=== PATIENT | male | born 1985 | race Caucasian/White ===

== ENCOUNTER 2018-11-14 22:13 | Inpatient (IN) | payer MEDICAID ==
[~2018-11-14] VITALS: Ht 185.4 cm; Wt 108.0 kg
[2018-11-14 22:15] VITALS: BP 122/69
--- NOTE | 2018-11-14 22:18 | NUR ---
to lobby a/w bed ambulatory
--- NOTE | 2018-11-14 23:04 | NUR ---
PT AMBULATED TO ER BED 10
--- NOTE | 2018-11-14 23:10 | NUR ---
33 YO M BIB MELISSA AND MADELYN PRESENTS TO ED S/P FALL AT AROUND 1700. PT STATES HE FELL BACKWARDS AND HIT HEAD AGAINST WALL TWICE AND FELL TO FLOOR. DENIES LOC BUT NOW FEELS WEAK, DIZZY, TIRED. GIRLFRIEND ALSO STATES THAT PT HAS NEW ONSET DISCOLORATION BENEATH EYES. NO GROSS TRAUMA/DEFORMITY NOTED TO SKULL. NO OTHER INJURIES REPORTED. -- PT AWAKE, A/O X 4, CALM, COOPERATIVE. ANSWERING QUESTIONS APPROPRIATELY. BEHAVIOR AGE APPROPROATE. NEURO CHECKS IN TACT. EYES PERRLA. PETICHIAE NOTED BENEATH EYES BILATERALLY. -- SKIN WARM, DRY, PINK. BREATHING EVEN, UNLABORED. PMH-- DENIES RX-- MOTRIN AT 1900 Addendum: 11/15/18 at 0308 by [facility] PT REPORTS NAUSEA WHILE SITTING IN WAITING ROOM. NO VOMITING. PT IS ALSO NOTED TO HAVE FLAT AFFECT DURING ASSESSMENT.
--- NOTE | 2018-11-14 23:30 | NUR ---
PT'S MADELYN APPROACHED PRIMARY NURSE TO EXPLAIN THAT PT RECEIVED NEWS THAT HIS FATHER TODAY AND THAT WAS WHAT CAUSED HIS "KNEES TO BUCKLE AND FALL".
--- NOTE | 2018-11-15 00:30 | NUR ---
Patient appears to be resting comfortably in bed. Vital Signs within normal limits. Respirations even and unlabored. Awaiting MD evaluation.
--- NOTE | 2018-11-15 01:07 | NUR ---
DR. HOWELL EVALUATING AT BEDSIDE.
--- NOTE | 2018-11-15 02:00 | NUR ---
PT IS BRADYCARDIC, FLUCTUATING BETWEEN 50-40 BPM. PT'S FIANCE STATES THAT HE WAS TOLD HE HAD A LOW HEART RATE WHEN HE WAS LAST HOSPITALIZED. DR. HOWELL MADE AWARE.
[2018-11-15] MEDS ORDERED: NACL 0.9% 1,000 ML IV ONE (02:30)
[2018-11-15] MEDS ORDERED: ONDANSETRON 4 MG/2 ML VIAL IVP ONE (02:30)
[2018-11-15] MEDS ORDERED: HYDROcodone/APAP 10/325 MG 1 TAB TAB PO PRN (02:30)
--- NOTE | 2018-11-15 02:40 | NUR ---
LAB AT BEDSIDE.
[2018-11-15 02:59] LABS: BASOPHILS % (AUTO) 0.2 % (0.0-2.0); EOSINOPHILS # (AUTO) 0.1 K/uL (0-0.4); EOSINOPHILS % (AUTO) 0.9 % (0.0-4.0); HEMATOCRIT 41.1 % (36-52); HEMOGLOBIN 14.1 g/dL (12.0-18.0); LYMPHOCYTES # (AUTO) 3.1 K/uL (2.0-11.5); LYMPHOCYTES % (AUTO) 36.9 % (20.5-51.1); MEAN CORPUSCULAR HEMOGLOBIN 31 pg (27-31); MEAN CORPUSCULAR HGB CONC 34 g/dL (33-37); MEAN CORPUSCULAR VOLUME 89.6 fL (80-94); MONOCYTES # (AUTO) 0.6 K/uL (0.8-1.0); MONOCYTES % (AUTO) 7.1 % (1.7-9.3); NEUTROPHILS # (AUTO) 4.6 K/uL (1.8-7.7); NEUTROPHILS % (AUTO) 54.9 % (42.2-75.2); PLATELET COUNT (AUTO) 222 K/uL (140-450); RED BLOOD CELL COUNT(AUTO) 4.59 MIL/uL (4.20-6.10); RED CELL DISTRIBUTION WIDTH 12.7 % (11.6-13.7); WHITE BLOOD COUNT (AUTO) 8.5 K/uL (4.8-10.8)
[2018-11-15 03:03] LABS: ANION GAP 13.2 (8-16); CARBON DIOXIDE 29.8 mmol/L (21-32)
[2018-11-15 03:08] LABS: ALBUMIN 3.9 g/dL (3.4-5.0); TOTAL BILIRUBIN 0.5 mg/dL (0.0-1.0)
--- NOTE | 2018-11-15 03:14 | NUR ---
PT IS C/O 4/10 LEFT SIDE CHEST PAIN THAT HE STATES JUST STARTED A FEW MINUTES AGO. PT IS CLUTCHING AT HIS CHEST. DENIES SOB, N/V, RADIATING PAIN. DR. HOWELL MADE AWARE.
--- NOTE | 2018-11-15 03:30 | NUR ---
EMT PERFORMING EKG AT [facility].
[2018-11-15] MEDS ORDERED: LORazepam 1 MG TAB PO ONE (03:35)
--- NOTE | 2018-11-15 03:45 | NUR ---
DR. HOWELL REEVALUATING AT BEDSIDE.
--- NOTE | 2018-11-15 04:00 | NUR ---
PT SLEEPING COMFORTABLY IN BED. SKIN PINK, WARM, DRY. BREATHING EVEN, UNLABORED. VSS.
--- NOTE | 2018-11-15 05:14 | NUR ---
PT WILL BE TRANSFERED TO [facility] FOR CT SCAN. ETA: 90 MINS, [facility] BLS TRANSPORT.
--- NOTE | 2018-11-15 05:54 | NUR ---
REPORT GIVEN TO [facility] FOR TRANSPORT TO [place] FOR CT. Addendum: 11/15/18 at 0555 by [facility] PT AWAKE, ALERT, VSS.
--- NOTE | 2018-11-15 07:15 | NUR ---
RECEIVED REPORT FROM RON CARSON
--- NOTE | 2018-11-15 07:20 | NUR ---
PT PROVIDED URINE SAMPLE, SAMPLE WALKED DOWN TO LAB AND HANDED TO ERICH FROM LAB.
[2018-11-15 07:27] LABS: APPEARANCE,URINE CLEAR (CLEAR); BILIRUBIN,URINE NEGATIVE (NEGATIVE); BLOOD, URINE NEGATIVE (NEGATIVE); COLOR,URINE YELLOW (YELLOW); LEUKOCYTE ESTERASE ,URINE NEGATIVE (NEGATIVE); NITRITE, URINE NEGATIVE (NEGATIVE); UGLUCOSE NEGATIVE (NEGATIVE)
[2018-11-15] MEDS ORDERED: METOCLOPRAMIDE 10 MG/2 ML INJ VIAL IVP ONE ×2 (07:40→07:50)
[2018-11-15 07:45] LABS: BARBITURATE, URINE NEG. ng/ml (NEG <=200); BENZODIAZEPINE, URINE NEG. ng/mL (NEG <=200); CANNABINOID, URINE NEG. ng/mL (NEG <=50); COCAINE, URINE NEG. ng/mL (NEG <=300); OPIATE, URINE POS. ng/mL (NEG <=2000); PHENCYCLIDINE SCREEN,URINE NEG. ng/mL (NEG <=25)
[2018-11-15] MEDS ORDERED: ZOLPIDEM 5 MG TAB PO PRN (09:20)
[2018-11-15] MEDS ORDERED: ACETAMINOPHEN 325 MG TAB PO PRN (09:20)
[2018-11-15] MEDS ORDERED: HYDROcodone/APAP 5/325 MG 1 TAB TAB PO PRN (09:20)
[2018-11-15] MEDS ORDERED: LORazepam 2 MG/ML VIAL IM/IVP PRN (09:20)
[2018-11-15] MEDS ORDERED: ONDANSETRON 4 MG/2 ML VIAL IM/IVP PRN (09:20)
--- NOTE | 2018-11-15 09:40 | NUR ---
PT ARRIVED ON THE UNIT WITH 2 ER NURSES. PT IS AWAKE AND ORIENTED. ABLE TO AMBULATE FROM GURNEY TO BED. C/O DIZZINESS. SKIN INTACT. MRSA DONE. IV ON R AC 20G SL. PT STATES HE FELL AT HOME YESTERDAY AND HIT HIS HEAD AGAINST THE WALL. COULDN'T GO TO HOSPITAL BC OF FATHER'S . V/S LOW. ON TELE-SB. WILL CONTINUE WITH ADMISSION.
--- NOTE | 2018-11-15 09:49 | NUR ---
Patient will be admitted to care of DR PERALES. Admited to TELE VIA GURNEY W/ VSS. Will go to room 122B. Belongings list completed. Report to MICHAEL CARSON.
[2018-11-15 10:30] VITALS: BP 115/74
[2018-11-15 10:33] LABS: BARBITURATE, URINE NEG. ng/ml (NEG <=200); BENZODIAZEPINE, URINE NEG. ng/mL (NEG <=200); CANNABINOID, URINE NEG. ng/mL (NEG <=50); COCAINE, URINE NEG. ng/mL (NEG <=300); OPIATE, URINE POS. ng/mL (NEG <=2000); PHENCYCLIDINE SCREEN,URINE NEG. ng/mL (NEG <=25)
[2018-11-15] MEDS: NACL 0.9% 1,000 ML IV SCH ×2 (11:00→20:21)
--- NOTE | 2018-11-15 11:00 | NUR ---
ADMINISTERED IVF, NS AT 100 ML/HR. FAMILY AT BEDSIDE.
[2018-11-15 11:20] LABS: CHOL/HDL RATIO 4.1 (1-4.5); FREE T4 (FREE THYROXINE) 1.15 ng/dL (0.76-1.46); PHOSPHORUS 3.3 mg/dL (2.5-4.9); THYROID STIMULATING HORMONE 1.48 uIU/mL (0.34-3.74)
[2018-11-15 11:40] LABS: PROTHROMBIN TIME 10.7 secs (10.8-13.4)
[2018-11-15] MEDS: ACYCLOVIR 200 MG CAP PO SCH ×2 (12:55→20:19)
--- NOTE | 2018-11-15 13:00 | NUR ---
ADMINISTERED ACYCLOVIR ORDERED. PT TOLERATED WELL.
--- NOTE | 2018-11-15 14:30 | NUR ---
PT SLEEPING. NO SIGNS OF DISTRESS. WILL CONTINUE TO MONITOR PT.
[2018-11-15 16:00] VITALS: BP 121/78
[2018-11-15] MEDS: MORPHINE SULFATE 2 MG/ML SYR IVP PRN ×2 (16:20→20:22)
--- NOTE | 2018-11-15 18:36 | NUR ---
C/O OF HEADACHE AND NECK PAIN. 11/26. ADMINISTERED MORPHINE. PT TOLERATED WELL. WILL CONTINUE TO MONITOR PT. FAMILY AT BEDSIDE. Addendum: 11/15/18 at 1840 by Manisha Gaspar RN WRONG TIME. ACTUAL TIME 1620. YAMILETH PIZARRO
--- NOTE | 2018-11-15 19:21 | NUR ---
RECEIVED REPORT FORM MICHAEL RN DAYSHIFT NURSE AT BEDSIDE FOR CONTINUITY OF CARE, PT IN STABLE CONDITION.
[2018-11-15 20:00] VITALS: BP 112/73
[2018-11-15] MEDS: DOCUSATE SODIUM 100 MG GELCAP PO PRN (20:40)
--- NOTE | 2018-11-15 21:00 | NUR ---
PT C/O SEVERE HEAD ACHE AND NECK PAIN , GIVEN MORPHINE PRN/IVP WILL MONITOR FOR PAIN.
--- NOTE | 2018-11-15 21:00 | NUR ---
PT IN LOW BED WITH SIDE RAILS UP X2 . PT IV SITE ON RIGHT AC 20G INTACT AND FLUSHED PATENT BUT HAS MINIMAL BLOODY LEAKAGE. OFFERED TO CHANGE IV SITE , BUT PT DECLINED . IV SITE FLUSHED NO DISCOMFORT VOICED FROM PT, NO REDNESS OR SWELLING AROUND THE SITE. PT RUNNING N/S AT 100MLS/HR. PT IS AOX4 AND SKIN INTACT. V/S FOLLOWS T 98.1 P 68 R 18 B/P 112/73 02 97% ON ROOM AIR. PT WANTED TO GET UP AND USE THE TOILET. PT SAID HE FELT A LITTLE DIZZY AND WAS STANDBY BY ASSISTANCE TO THE TOILET AND BACK ORTHOSTATIC B/P TAKEN STANDING 112/73, SITTING B/P WAS 119/72. PT SAID THAT HE DID HAVE TROUBLE HAVING A BM AND WAS UNABLE TO HAVE A BM, PT GIVEN PO/PRN COLACE AND ORDERED ZOVIRAX. PT ALSO C/O OF 7/10 HEADACHE FORM GETTING UP AND AMBULATING, PT GIVEN MORPHINE PRN, IVP, WILL MONITOR FOR EFFECT.
--- NOTE | 2018-11-15 22:30 | NUR ---
PT C/O INSOMNIA AND WAS GIVEN PO/PRN AMBIEN. WILL MONITOR FOR EFFECT.
[2018-11-16] VITALS: BP 125/77
[2018-11-16] MEDS: MORPHINE SULFATE 2 MG/ML SYR IVP PRN ×3 (01:24→17:47)
--- NOTE | 2018-11-16 01:30 | NUR ---
PT C/O SEVERE PAIN IN HEAD AND NECK WAS GIVEN IVP MORPHINE PRN, WILL MONITOR FOR EFFECT.
[2018-11-16] MEDS: NACL 0.9% 1,000 ML IV SCH ×3 (05:20→21:45)
[2018-11-16] MEDS: ACYCLOVIR 200 MG CAP PO SCH ×3 (05:43→21:43)
[2018-11-16 06:00] VITALS: BP 106/57
[2018-11-16 06:58] LABS: CARBON DIOXIDE 25.5 mmol/L (21-32); CREATININE 0.9 mg/dL (0.7-1.3); POTASSIUM 3.5 mmol/L (3.5-5.1)
[2018-11-16 07:02] LABS: PHOSPHORUS 4.4 mg/dL (2.5-4.9)
--- NOTE | 2018-11-16 07:15 | NUR ---
REPORT GIVEN TO BRODERICK RN DAYSHIFT NURSE AT BEDSIDE FOR CONTINUITY IF CARE, PT IN STABLE CONDITION.
--- NOTE | 2018-11-16 07:20 | NUR ---
PT RESTING IN BED EASILY AROUSABLE TO NAME WITH NO COMPLAINTS OR REQUESTS BREATHING UNLABORED AND SYMMETRICAL. PT IS A0X4, HAS A RIGHT ANTECUBITAL IV THAT IS INFUSING NORMAL SALINE AT 100ML/HR ASYMPTOMATIC AND PATENT. PT REPORTS NO PAIN OR DISCOMFORT MAINTAINS EYE CONTACT WITH PUPILS REACTIONARY. ALL SAFETY MEASURES IN PLACE AND CALL LIGHT WITHIN REACH.
[2018-11-16 08:00] VITALS: BP 109/55
[2018-11-16 08:05] LABS: BASOPHILS % (AUTO) 0.6 % (0.0-2.0); EOSINOPHILS # (AUTO) 0.2 K/uL (0-0.4); EOSINOPHILS % (AUTO) 3.1 % (0.0-4.0); HEMOGLOBIN 13.8 g/dL (12.0-18.0); LYMPHOCYTES # (AUTO) 3.5 K/uL (2.0-11.5); LYMPHOCYTES % (AUTO) 56.5 % (20.5-51.1); MEAN CORPUSCULAR HEMOGLOBIN 31 pg (27-31); MEAN CORPUSCULAR HGB CONC 35 g/dL (33-37); MEAN CORPUSCULAR VOLUME 90.9 fL (80-94); MONOCYTES # (AUTO) 0.4 K/uL (0.8-1.0); MONOCYTES % (AUTO) 6.1 % (1.7-9.3); NEUTROPHILS # (AUTO) 2.1 K/uL (1.8-7.7); NEUTROPHILS % (AUTO) 33.7 % (42.2-75.2); PLATELET COUNT (AUTO) 211 K/uL (140-450); RED CELL DISTRIBUTION WIDTH 12.8 % (11.6-13.7); WHITE BLOOD COUNT (AUTO) 6.2 K/uL (4.8-10.8)
--- NOTE | 2018-11-16 08:53 | NUR ---
PT IS SITTING UP IN BED BREATHING UNLABORED AOX4, NO COMPLAINTS OF ANYTHING. ASKED PT IF HE WANTS ANYTHING AT ALL OR HELP BATHING. I BROUGHT PT WASH BASIN, TOWELS, AND ALL AMENITIES NEEDED FOR CLEANING PER HIS REQUEST AND EXPLAINED TO PT WHY HE CANNOT SHOWER WITH THE TELE MONITOR. PT HAS NO OTHER REQUESTS.
--- NOTE | 2018-11-16 10:54 | NUR ---
ADMINISTERED MEDICATION FOR PAIN PER PT REQUEST, ALSO SPOKE ON THE PHONE TO PATIENT'S MADELYN COLLINS AT [phone] WHO WAS ASKING IF THE PATIENT'S 7 YEAR OLD DAUGHTER COULD VISIT. I SPOKE WITH THE CHARGE NURSE AND SHE INFORMED ME SHE COULD. DENNIS REQUESTED I DO NOT TELL THE PATIENT TO SURPRISE HIM. NO OBVIOUS DISTRESS OR CONCERNS WITH PT AT THIS TIME.
[2018-11-16 12:00] VITALS: BP 111/71
--- NOTE | 2018-11-16 12:01 | NUR ---
PT RESTING IN BED NO REQUESTS OR SIGNS OF DISTRESS.
--- NOTE | 2018-11-16 12:40 | NUR ---
ADMINISTERED MEDICATIONS, REVIEWED INDICATIONS PT HAS NO OTHER REQUESTS AT THIS TIME AND NO OBVIOUS SIGNS OF DISTRESS.
--- NOTE | 2018-11-16 12:52 | NUR ---
RECEIVED CALL FROM WAREHOUSE HANDLER THAT PT MADELYN IS HERE WITH PATIENT'S DAUGHTER WHO IS AN . EXPLAINED I HAD MISUNDERSTOOD WHEN I SPOKE TO THE MADELYN EARLIER THAT THE CHILD WAS EARLIER AND TOLD HER TO WAIT UNTIL I CAN MAKE SURE THE BABY CAN COME VISIT THE PATIENT. SPOKE WITH CHARGE NURSE WHO TOLD ME THE PATIENT AND FAMILY NEED TO UNDERSTAND THE RISK OF BRINGING A BABY TO THE HOSPITAL FLOOR BUT IF IT IS THEIR CHILD THEY CAN VISIT. I THEN CALLED WAREHOUSE HANDLER BACK AND EXPLAINED THIS TO THEM AND TOLD THEM IT IS OKAY FOR THE CHILD TO VISIT. PT MADELYN AND DAUGHTER IS NOW AT BEDSIDE WITH PATIENT.
--- NOTE | 2018-11-16 13:35 | NUR ---
PATIENT HAS BEEN SCREENED AND CATEGORIZED LOW NUTRITION RISK. PATIENT WILL BE SEEN WITHIN 7 DAYS OF ADMISSION. 11/22/18 MAR DUNAWAY MBA, RD
--- NOTE | 2018-11-16 13:48 | NUR ---
PT RESTING IN BED WITH FAMILY MEMBERS AT BEDSIDE AND DAUGHTER WELL. PT EATING LUNCH DENYING ANY REQUESTS FOR ANYTHING.
[2018-11-16] MEDS: DOCUSATE SODIUM 100 MG GELCAP PO PRN (15:26)
--- NOTE | 2018-11-16 15:40 | NUR ---
ADMINISTERED PRN COLACE PER INSTRUCTIONS OF DR GAUTHIER WHILE DR GAUTHIER WAS AT BEDSIDE DISCUSSING DISCHARGE PLANNING WITH PATIENT FOR POSSIBLY TOMORROW. PT FAMILY AT BEDSIDE STATING THEY ARE LEAVING SOON AND PT STATING HE PLANS ON SLEEPING ONCE THEY LEAVE. PT HAS NO DISTRESS OR COMPLAINTS AT THIS TIME.
[2018-11-16 16:00] VITALS: BP 114/56
[2018-11-16] MEDS ORDERED: ASPIRIN 325 MG TAB PO ONE (17:40)
--- NOTE | 2018-11-16 17:40 | NUR ---
SPOKE TO DR GAUTHIER ABOUT PT REPORTED CHEST NO OTHER SIGNS OF DISTRESS AT THIS TIME. HE TOLD ME TO AWAIT ORDERS AND I CAN GIVE IV MORPHINE.
--- NOTE | 2018-11-16 19:20 | NUR ---
GAVE BEDSIDE REPORT TO NIGHT NURSE PT IN STABLE CONDITION
--- NOTE | 2018-11-16 19:30 | NUR ---
Received endorsement from AM shift RN; patient Z/Ox4, able to make needs known, Cameroonian speaking, ambulatory. Patient is talking with family; introduced self, updated board. No SOB or distress noted, on room air. IV site on right antecubital, 20 gauge, intact, running IVF at 100mL/hr. Skin intact. Bed in the lowest position ,call light with reach. Initial assessment done. Will continue to monitor.
[2018-11-16 20:00] VITALS: BP 116/64
--- NOTE | 2018-11-16 20:20 | NUR ---
Vital taken, no SOB or distress noted.
--- NOTE | 2018-11-16 21:40 | NUR ---
Due meds given, tolerated well.
--- NOTE | 2018-11-16 23:50 | NUR ---
Vitals taken, no distress noted.
[2018-11-17] VITALS: BP 106/56
[2018-11-17] MEDS: MORPHINE SULFATE 2 MG/ML SYR IVP PRN (00:42)
--- NOTE | 2018-11-17 00:45 | NUR ---
Patient complained of 8/10 head pain. Administered pain med per order and per pain scale. Will continue to monitor.
--- NOTE | 2018-11-17 03:45 | NUR ---
Vitals taken, no distress noted.
[2018-11-17 04:00] VITALS: BP 109/71
[2018-11-17] MEDS: ACYCLOVIR 200 MG CAP PO SCH (04:15)
--- NOTE | 2018-11-17 05:15 | NUR ---
Patient reported IV on right antecubital is leaking. IV removed, tip intact, site cleaned. Patient refused IV reinsertion. Made Dr. Toth aware.
[2018-11-17 06:28] LABS: MAGNESIUM 1.9 mg/dL (1.8-2.4); PHOSPHORUS 4.4 mg/dL (2.5-4.9)
[2018-11-17 06:43] LABS: BASOPHILS % (AUTO) 0.3 % (0.0-2.0); EOSINOPHILS # (AUTO) 0.2 K/uL (0-0.4); EOSINOPHILS % (AUTO) 3.2 % (0.0-4.0); HEMATOCRIT 40.6 % (36-52); HEMOGLOBIN 13.9 g/dL (12.0-18.0); LYMPHOCYTES # (AUTO) 3.8 K/uL (2.0-11.5); LYMPHOCYTES % (AUTO) 54.6 % (20.5-51.1); MEAN CORPUSCULAR HEMOGLOBIN 31 pg (27-31); MEAN CORPUSCULAR HGB CONC 34 g/dL (33-37); MEAN CORPUSCULAR VOLUME 89.7 fL (80-94); MONOCYTES # (AUTO) 0.5 K/uL (0.8-1.0); MONOCYTES % (AUTO) 6.7 % (1.7-9.3); NEUTROPHILS # (AUTO) 2.5 K/uL (1.8-7.7); NEUTROPHILS % (AUTO) 35.2 % (42.2-75.2); PLATELET COUNT (AUTO) 199 K/uL (140-450); RED BLOOD CELL COUNT(AUTO) 4.52 MIL/uL (4.20-6.10); RED CELL DISTRIBUTION WIDTH 12.8 % (11.6-13.7); WHITE BLOOD COUNT (AUTO) 7.1 K/uL (4.8-10.8)
[2018-11-17 06:50] LABS: ANION GAP 12.3 (8-16); CARBON DIOXIDE 27.5 mmol/L (21-32); CREATININE 0.9 mg/dL (0.7-1.3); POTASSIUM 3.8 mmol/L (3.5-5.1)
[2018-11-17] MEDS ORDERED: NITROGLYCERIN 0.4 MG TAB SL PRN (06:55)
--- NOTE | 2018-11-17 07:07 | NUR ---
Endorsed patient to AM shift RN for continuity of care; patient in stable condition.
--- NOTE | 2018-11-17 07:08 | NUR ---
RECEIVED REPORT FROM INVESTMENT COUNSELOR NURSE DAVID FOR CONTINUITY OF CARE. PT IN STABLE CONDITION. RESPIRATIONS EVEN AND UNLABORED, ROOM AIR. NO IV IN PLACE AT THIS TIME. SAFETY MEASURES IN PLACE. CALL LIGHT AT BEDSIDE. BED IN LOW POSITION. WILL CONTINUE TO MONITOR.
[2018-11-17] MEDS ORDERED: LISINOPRIL 5 MG TAB PO SCH ×2 (07:34→09:00)
[2018-11-17 08:00] VITALS: BP 116/68
--- NOTE | 2018-11-17 08:10 | NUR ---
0734 LISINOPRIL 5MG NOT GIVEN PER [facility] D[facility] DUE TO CURRENT HEART RATE FLUCTUATION. HR LOW 40'S TO MID 60'S. B/P 116/ 68. PT IN STABLE CONDITION. WILL CONTINUE TO MONITOR.
[2018-11-17] MEDS ORDERED: ENOXAPARIN 40 MG/0.4 ML SYR SUBQ SCH (09:00)
[2018-11-17] MEDS ORDERED: METOPROLOL 25 MG TAB PO SCH (09:00)
[2018-11-17] MEDS ORDERED: ASPIRIN 81 MG TAB.CHEW PO SCH ×2 (09:00)
--- NOTE | 2018-11-17 09:14 | NUR ---
GAVE ORDERED DUE MEDICATIONS AT THIS TIME. PT TOLERATED WELL. WILL CONTINUE TO MONITOR. BED IN LOW POSITION. CALL LIGHT AT BEDSIDE.
[2018-11-17] MEDS ORDERED: LORazepam 2 MG/ML VIAL IVP SCH (10:30)
[2018-11-17] MEDS ORDERED: LORazepam 0.5 MG TAB PO SCH (11:00)
[2018-11-17] MEDS: NACL 0.9% 1,000 ML IV SCH (11:20)
--- NOTE | 2018-11-17 11:29 | NUR ---
PT TALKING TO FIANCE AT BEDSIDE IN STABLE CONDITION. RESPIRATIONS EVEN AND UNLABORED. BED IN LOW POSITION. CALL LIGHT AT BEDSIDE. WILL CONTINUE TO MONITOR.
[2018-11-17 12:00] VITALS: BP 114/64
[2018-11-17] MEDS ORDERED: KETO10TA2 PO (12:25)
[2018-11-17] MEDS ORDERED: IBUP-2213 PO (12:34)
--- NOTE | 2018-11-17 13:15 | NUR ---
GAVE DISCHARGE INSTRUCTIONS AND PRESCRIPTIONS TO HAVE FILLED AT HOME PHARMACY. PT VERBALIZED UNDERSTANDING OF INSTRUCTIONS. IV REMOVED, LUMEN INTACT. ID BAND REMOVED. PT REFUSED WHEELCHAIR. PT ESCORTED TO LOBBY WHERE FRIEND WAS WAITING WITH VEHICLE. PT DISCHARGED HOME IN STABLE CONDITION.
[2018-11-17] MEDS ORDERED: ATORVASTATIN 20 MG TAB PO SCH (21:00)
[2018-11-18] MEDS ORDERED: LISINOPRIL 5 MG TAB PO SCH (09:00)
== END 2018-11-17 13:15 | disposition home or self-care (01) | DRG 48 ==
LOC: MED 22:13 → MTU 11-15 09:20
PROVIDERS: ADMIT General Practice; ATTEND General Practice
DX: G90.8 Other disorders of autonomic nervous system (principal); B00.9 Herpesviral infection, unspecified; R55 Syncope and collapse; M94.0 Chondrocostal junction syndrome [Tietze]; F41.9 Anxiety disorder, unspecified; R00.1 Bradycardia, unspecified; Z82.3 Family history of stroke
CPT/HCPCS: 36415; 71045; 80048; 80053; 80305; 81003; 82150; 83036; 83690; 83735; 83880; 84100; 84439; 84443; 84484; 85025; 85610; 85730; 87081; 93005; 93880; 96361; 96374; 96375; 99285; J1650; J2060; J2270; J2405; J2765; J7030; Q0092

== ENCOUNTER 2019-06-01 12:00 | Emergency (ER) | payer MEDICAID ==
[~2019-06-01] VITALS: Ht 185.4 cm; Wt 106.6 kg
[~2019-06-01 12:00] MED LIST: IBUP-2213 PO
[2019-06-01 12:15] VITALS: BP 115/72
--- NOTE | 2019-06-01 12:22 | NUR ---
influenza and strep swabs collected and handed to lab
--- NOTE | 2019-06-01 13:18 | NUR ---
PT AMBULATED TO CHAIR C
--- NOTE | 2019-06-01 13:21 | NUR ---
c/o hacking sharp cough radiating anterior chest wall; throat pain, f/c, and bodyaches generalized weakness
[2019-06-01 13:30] VITALS: BP 132/71
--- NOTE | 2019-06-01 13:31 | NUR ---
Patient discharged with v/s stable. Written and verbal after care instructions given and explained. Patient alert, oriented and verbalized understanding of instructions. Ambulatory with steady gait. All questions addressed prior to discharge. ID band removed. Patient advised to follow up with PMD. Rx of tamiflu/acetaminophen/ibuprofen/zofran given. Patient educated on indication of medication including possible reaction and side effects. Opportunity to ask questions provided and answered.
== END 2019-06-01 13:31 | disposition home or self-care (01) ==
LOC: MED 12:00
DX: J10.1 Influenza due to other identified influenza virus with other respiratory manifestations (principal); Z79.899 Other long term (current) drug therapy; Z98.890 Other specified postprocedural states
CPT/HCPCS: 71045; 87081; 87804; 99284